=== PATIENT | male | born 1985 | race African-American/Black ===

== ENCOUNTER 2023-09-04 02:44 | Inpatient (IN) | payer OTHER ==
[~2023-09-04] VITALS: Ht 172.7 cm; Wt 207.7 kg
[2023-09-04 05:28] LABS: HEMATOCRIT. 36.9 % (42.0-52.0); HEMOGLOBIN. 11.7 g/dL (14.0-18.0); MEAN CORPUSCULAR HEMOGLOBIN 26.8 pg (28.0-32.0); MEAN CORPUSCULAR HGB CONC 31.7 g/dL (31.0-37.0); MEAN CORPUSCULAR VOLUME 84.5 fL (80.0-94.0); MEAN PLATELET VOLUME 9.4 fl (7.4-10.4); PLATELET 209 x1000/uL (130-400); RED BLOOD CELL COUNT 4.36 mill/uL (4.7-6.1); WHITE BLOOD COUNT 12.9 x1000/uL (4.5-11.0)
[2023-09-04 05:37] LABS: CHLORIDE 100 mEq/L (98-107); INDEX HEMOLYSI 1 (1-3); INDEX ICTERIC 1 (1-4); INDEX LIPEMIC 1 (1-3); POTASSIUM 4.1 mEq/L (3.5-5.1); SODIUM 134 mEq/L (136-145)
[2023-09-04 05:38] LABS: CLARITY URINE CLEAR (CLEAR); COLOR URINE YELLOW (YELLOW); GLUCOSE URINE NEGATIVE (NEGATIVE); KETONES URINE NEGATIVE (NEGATIVE); LEUKOCYTE ESTERASE URINE NEGATIVE (NEGATIVE); NITRITE URINE NEGATIVE (NEGATIVE); OCCULT BLOOD URINE NEGATIVE (NEGATIVE); PROTEIN URINE NEGATIVE (NEGATIVE)
[2023-09-04 05:45] LABS: ALANINE AMINOTRANSFERASE 18 IU/L (13-61); ALBUMIN 3.3 g/dL (3.4-5.0); ASPARTATE AMINOTRANSFERASE 13 IU/L (15-37); BILIRUBIN TOTAL 0.5 mg/dL (0.1-1.0); CALCIUM 8.7 mg/dL (8.5-10.1); CARBON DIOXIDE 29 mEq/L (21-32); CREATININE 0.7 mg/dL (0.6-1.3); ETHANOL BLOOD < 10 mg/dL (<10); GLUCOSE 151 mg/dL (70-105); PROTEIN TOTAL 8.4 g/dL (6.0-8.3); UREA NITROGEN BLOOD 11 mg/dL (7-21)
[2023-09-04 05:51] LABS: *AMPHETAMINES SCREEN URINE NEGATIVE (NEGATIVE); *BARBITURATES SCREEN URINE NEGATIVE (NEGATIVE); *BENZODIAZEPINES SCREEN URINE NEGATIVE (NEGATIVE); *COCAINE SCREEN URINE NEGATIVE (NEGATIVE); CANNABINOID URINE SCREEN NEGATIVE (NEGATIVE); ECSTASY MDMA SCREEN URINE NEGATIVE (NEGATIVE); METHADONE URINE SCREEN NEGATIVE (NEGATIVE); OPIATES URINE SCREEN NEGATIVE (NEGATIVE); PHENCYCLIDINE URINE SCREEN NEGATIVE (NEGATIVE)
[2023-09-04] MEDS ORDERED: ACETAMINOPHEN 325MG TABLET PO STA (06:01)
[2023-09-04] MEDS ORDERED: SODIUM CHLORIDE 0.9% 1,000 ML IV ONE ×2 (06:15→07:00)
[2023-09-04 06:30] LABS: DIFFERENTIAL COMMENT 1
[2023-09-04] MEDS ORDERED: VANCOMYCIN 1G PREMIX 200 ML IV ONE (07:00)
[2023-09-04] MEDS ORDERED: PIPERACILLIN/TAZ 3.375G PREMIX 50 ML IV ONE (07:00)
[2023-09-04] MEDS ORDERED: LIDOCAINE HCL 1% 10 MG/ML 10ML VIAL ONE (08:19)
[2023-09-04 08:42] LABS: TROPONIN I HIGH SENSITIVITY 8 ng/L (<78)
[2023-09-04 09:41] LABS: ANISOCYTOSIS 1+; PLATELET ESTIMATE NORMAL
[2023-09-04] MEDS ORDERED: PIPERACILLIN/TAZ 3.375G PREMIX 50 ML IV NR (10:16)
[2023-09-04] MEDS ORDERED: ONDANSETRON HCL 4MG/2ML INJ IV PRN (11:30)
[2023-09-04] MEDS ORDERED: CEFTRIAXONE 1GM PREMIX 50ML IV NR (12:00)
[2023-09-04] MEDS ORDERED: CEFTRIAXONE 1,000 MG in DEXTROSE 5% WATER 50 ML IV SCH (13:00)
[2023-09-04] MEDS: AZITHROMYCIN 250 MG TABLET PO SCH (13:45)
[2023-09-04] MEDS ORDERED: IPRATROPIUM BROMIDE (0.02%) 0.5MG/2.5ML NEB HHN PRN (14:00)
[2023-09-04 14:57] VITALS: BP 132/77; PULSE 107; RESP 18; TEMP 96.7
[2023-09-04 16:00] VITALS: BP 144/66; PULSE 114; RESP 20; TEMP 97.7
[2023-09-04] MEDS: ENOXAPARIN 40MG/0.4ML SYR SUBCUT SCH (17:51)
[2023-09-04] MEDS: ACETAMINOPHEN 325MG TABLET PO PRN (18:26)
[2023-09-04 20:00] VITALS: BP 155/85; PULSE 107; RESP 20; TEMP 97.7
[2023-09-05] VITALS: BP 153/87; PULSE 110; RESP 18; TEMP 98.6
[2023-09-05 04:00] VITALS: PULSE 112; RESP 18; TEMP 99.7
[2023-09-05] MEDS: ENOXAPARIN 40MG/0.4ML SYR SUBCUT SCH ×2 (05:06→18:00)
[2023-09-05] MEDS: ACETAMINOPHEN 325MG TABLET PO PRN ×3 (05:12→18:25)
[2023-09-05 08:00] VITALS: BP 134/90; PULSE 99; RESP 20; TEMP 98.8
[2023-09-05] MEDS: AZITHROMYCIN 250 MG TABLET PO SCH (08:39)
[2023-09-05 12:00] VITALS: BP 134/89; PULSE 95; RESP 20; TEMP 99.5
[2023-09-05] MEDS ORDERED: CEFTRIAXONE 1,000 MG in DEXTROSE 5% WATER 50 ML IV SCH (14:00)
[2023-09-05 16:00] VITALS: BP 160/68; PULSE 104; RESP 20; TEMP 100.2
[2023-09-05] MEDS ORDERED: SEMA0.258 SUBCUT (16:06)
[2023-09-05] MEDS ORDERED: LEVO750T68 MT (16:06)
[2023-09-05 17:50] LABS: BASOPHILS % 0.3 % (0.0-2.0); EOSINOPHILS % 0.2 % (0.0-5.0); HEMATOCRIT. 33.9 % (42.0-52.0); MEAN CORPUSCULAR HEMOGLOBIN 27.2 pg (28.0-32.0); MEAN CORPUSCULAR HGB CONC 32.4 g/dL (31.0-37.0); MEAN CORPUSCULAR VOLUME 83.9 fL (80.0-94.0); MEAN PLATELET VOLUME 9.4 fl (7.4-10.4); MONOCYTES % 6.5 % (2.0-8.0); PLATELET 183 x1000/uL (130-400); RED BLOOD CELL COUNT 4.04 mill/uL (4.7-6.1); RED CELL DISTRIBUTION WIDTH 16.7 % (11.6-14.6); WHITE BLOOD COUNT 9.4 x1000/uL (4.5-11.0)
[2023-09-05 18:11] LABS: CHLORIDE 102 mEq/L (98-107); INDEX HEMOLYSI 2 (1-3); INDEX ICTERIC 1 (1-4); INDEX LIPEMIC 1 (1-3); POTASSIUM 3.6 mEq/L (3.5-5.1); SODIUM 136 mEq/L (136-145)
[2023-09-05 18:16] LABS: CARBON DIOXIDE 32 mEq/L (21-32); CREATININE 0.7 mg/dL (0.6-1.3); GLUCOSE 119 mg/dL (70-105); UREA NITROGEN BLOOD 8 mg/dL (7-21)
[2023-09-05] MEDS ORDERED: *PATIENT'S OWN MEDICATION STORAGE XX SCH (19:00)
[2023-09-05 20:00] VITALS: BP 167/83; PULSE 95; RESP 22; TEMP 97
[2023-09-06] VITALS: BP 137/85; PULSE 89; RESP 20; TEMP 98.4
[2023-09-06] MEDS: ACETAMINOPHEN 325MG TABLET PO PRN (00:39)
[2023-09-06 04:00] VITALS: BP 154/92; PULSE 91; RESP 22; TEMP 99.3
[2023-09-06] MEDS: ENOXAPARIN 40MG/0.4ML SYR SUBCUT SCH (05:07)
[2023-09-06 08:00] VITALS: BP 148/79; PULSE 84; RESP 20; TEMP 98.2
[2023-09-06] MEDS: AZITHROMYCIN 250 MG TABLET PO SCH (08:40)
[2023-09-06 12:00] VITALS: BP_SYST 140; BP_SYST 148; BP_DIAS 72; BP_DIAS 79; PULSE 82; PULSE 84; RESP 19; TEMP 98.2; TEMP 98.8; O2SAT 93
== END 2023-09-06 13:50 | disposition home or self-care (01) | DRG 720 ==
LOC: ER 02:44 → 8WST 08:54 → EDBEDREQTM 08:57 → EDBEDREQ 08:57
PROVIDERS: ADMIT Internal Medicine; ATTEND Internal Medicine
PROC: 05HY33Z Insertion of Infusion Device into Upper Vein, Percutaneous Approach (ICD-10-PCS; principal; 2023-09-04)
PROC: B54NZZA Ultrasonography of Left Upper Extremity Veins, Guidance (ICD-10-PCS; 2023-09-04)
DX: A41.9 Sepsis, unspecified organism (principal); J96.01 Acute respiratory failure with hypoxia; E44.1 Mild protein-calorie malnutrition; J18.9 Pneumonia, unspecified organism; E87.1 Hypo-osmolality and hyponatremia; Z68.44 Body mass index [BMI] 60.0-69.9, adult; Z20.822 Contact with and (suspected) exposure to COVID-19; D64.9 Anemia, unspecified; E66.9 Obesity, unspecified; E66.01 Morbid (severe) obesity due to excess calories; E11.9 Type 2 diabetes mellitus without complications; Z79.899 Other long term (current) drug therapy
CPT/HCPCS: 36415; 36573; 71045; 80048; 80053; 80305; 80320; 81003; 83036; 83605; 84145; 84484; 85025; 87426; 87804; 93005; 99291; C1725; J0696; J1650; J2543; J3370; J3490; J7030; J7060; G0480